=== PATIENT | male | born 1950 | race Caucasian/White ===

== ENCOUNTER 2023-03-14 12:31 | Outpatient (CLI) | payer OTHER, SELFPAY ==
[2023-03-14 19:20] LABS: Basophils Absolute Auto 0.1 K/mm3 (0.0-0.1); Basophils Percent Auto 0.7 % (0.2-1.2); Eosinophils Absolute Auto 0.6 K/mm3 (0-0.3); Eosinophils Percent Auto 5.6 % (0-4.4); Hematocrit 45.7 % (42.0-52.0); Hemoglobin 14.9 g/dL (14.0-18.0); Immature Granulocyte Absolute 0.04 K/mm3 (0.00-0.031); Immature Granulocyte Percent A 0.4 % (0-0.5); Lymphocytes Absolute Auto 2.81 K/mm3 (0.9-3.2); Lymphocytes Percent Auto 26.3 % (18.3-44.2); Mean Corpuscular HGB Conc 32.6 g/dl (32-36); Mean Corpuscular Hemoglobin 30.5 pg (26-34); Mean Corpuscular Volume 93.6 fl (80-100); Mean Platelet Volume 10.2 fl (7.4-10.4); Monocytes Absolute Auto 0.9 K/mm3 (0.1-0.6); Monocytes Percent Auto 8.2 % (2.6-8.5); Neutrophils Absolute Auto 6.3 K/mm3 (1.3-6.7); Neutrophils Percent Auto 58.8 % (45.5-73.1); Platelet Count Result 322 k/mm3 (150-375); Red Blood Count 4.88 M/mm3 (4.6-6.20); Red Cell Distribution Width 12.4 % (11.5-14.5); White Blood Count 10.7 K/mm3 (4.5-10.0)
[2023-03-14 22:10] LABS: Prostate Specific Antigen 2.9 ng/mL (< OR = 4.0)
[2023-03-15 00:24] LABS: Alanine Aminotransferase 19 U/L (6-50); Albumin Level 4.2 g/dL (3.5-5.1); Alkaline Phosphatase 82 U/L (38-126); Anion Gap 9 mmol/L (8-16); Aspartate Amino Transferase 28 U/L (17-59); Bilirubin,Total 0.7 mg/dL (0.2-1.3); Blood Urea Nitrogen 14 mg/dL (9-20); Calcium 9.3 mg/dL (8.4-10.2); Carbon Dioxide 27 mmol/L (22-30); Chloride 104 mmol/L (98-107); Cholesterol 140 mg/dL (0-200); Estimated Glomerular Filt Rate > 60; Glucose 84 mg/dL (65-110); HDL Direct 45 mg/dL; Potassium 4.2 mmol/L (3.4-5.0); Sodium 140 mmol/L (137-145); Triglycerides 95 mg/dL (<150)
[2023-03-15 00:33] LABS: LDL Cholesterol Direct 83 mg/dL
== END 2023-03-14 12:32 | disposition home or self-care (01) ==
LOC: ANHGOSHLAB 12:33
PROVIDERS: PCP Family Medicine; Visit Provider Family Medicine
DX: Z13.228 Encounter for screening for other metabolic disorders (principal); R53.83 Other fatigue; Z13.220 Encounter for screening for lipoid disorders; E78.5 Hyperlipidemia, unspecified; Z12.5 Encounter for screening for malignant neoplasm of prostate
CPT/HCPCS: 36415; 80053; 80061; 84153; 85025; G0103

== ENCOUNTER 2023-06-15 00:31 | Day surgery (SDC) | payer OTHER, SELFPAY ==
[2023-05-30 14:55] VITALS: BMI 20.9
[2023-06-15 07:42] VITALS: BP 133/69; PULSE 58; RESP 20; TEMP 36.1; O2SAT 96; BMI 21.2
[2023-06-15] MEDS: LACTATED RINGERS 1,000 ML 150 ML IV CONT (07:53)
--- NOTE | 2023-06-15 08:46 | PM.HPGS ---
History of Present Illness History of Present Illness Consent: Risks, benefits, and alternatives have been discussed and questions answered. Patient agrees to proceed with procedure. Chief complaint: Epigastric pain Narrative: Saeid Silver is a 72 year old male with gerd, never had egd. Using rolaids as needed Review of Systems Review of Systems: All systems reviewed & are unremarkable except as noted in HPI and below PMFSH Past Medical History Medical History (Updated 06/15/23 @ 08:51 by Jr Montero MD) GERD (gastroesophageal reflux disease) Surgical History Surgical History Hx of cholecystectomy (~2013) Family History Family History Father Malignant neoplasm of prostate Mother Lewy body dementia Sibling Malignant neoplasm of prostate Social History Social History Social History: Caffeine 1 cup of coffee and/or soda a few days a week Smoking packs per day: 1 Smoking cigarettes per day: 20.0 Smoking status: Former smoker Tobacco type: cigarettes Smoking end date: 02/15/08 Alcohol intake: current Drinks per week: 1 Alcohol use details: 2-3 Beer per month Substance use: never Substance use type: marijuana Other substance usage details: gummies Do You Feel Safe in your Home?: Yes Lack of Transportation: No Lack of Food: Never True Current Housing: I Have Housing Concerned About Future Housing: No Difficulty Paying Gas/Electric Bills: No Difficulty Paying for Meds: No Currently Unemployed: No Education: Associate Degree Difficulty w/ Childcare or Family Care: No Living arrangements: alone Occupation/Education: retired Gender identity (if verbalized by the patient): Male Spiritual care concerns: No Agree to blood products: Yes Meds Home Medications and Allergies Home Medications Medication Instructions Recorded Confirmed Type amlodipine 5 mg tablet 5 mg PO DAILY 03/14/23 06/15/23 History simvastatin 10 mg tablet 10 mg PO DAILY 03/14/23 06/15/23 History Allergies Allergy/AdvReac Type Severity Reaction Status Date / Time No Known Allergies Allergy Verified 06/15/23 07:41 Vital Signs Vital Signs - 24 hr 06/15/23 07:42 Temperature 97 F L Pulse Rate 58 L Respiratory Rate 20 Blood Pressure 133/69 Pulse Oximetry 96 Oxygen Delivery Room Air Exam Const: General: comfortable and no acute distress HENMT: Face/Nose/Sinus: Normal nares present Eyes: General: appearance normal, both eyes and all related structures Neck: Neck: no JVD Resp: Auscultation: clear to auscultation bilaterally Cardio: Rate: regular rate Rhythm: regular rhythm GI: Inspection: non-distended GI Palp: Yes Soft to palpation Skin: General skin exam: normal color Neuro: General: gait normal Speech: normal speech Extrem: General: normal to inspection Psych: Mental Status: mental status grossly normal Assessment and Plan Assessment and plan (1) GERD (gastroesophageal reflux disease): Code(s): K21.9 - Gastro-esophageal reflux disease without esophagitis Status: Acute Assessment and Plan: egd with bx
[2023-06-15 09:01] VITALS: BP 104/61; PULSE 61; RESP 19; O2SAT 97
[2023-06-15 09:11] VITALS: BP 107/61; PULSE 62; RESP 26; O2SAT 99
[2023-06-15 09:21] VITALS: BP 112/70; PULSE 60; RESP 20; O2SAT 98
--- NOTE | 2023-06-17 11:31 | WPDANESEPPF ---
Anes - Initial Pre Proc Eval Procedure: Operation Date: 06/15/23 09:00 Proposed Procedures p Esophagogastroduodenoscopy - Jr Montero MD Date/Time: 06/17/23 11:31 Surgeon: Jr Montero MD Pre Op Diagnosis: Epigastric pain Patient Data Age: 72 Gender: M Height: 1.68 m Weight: 59.7 kg Last Vital Signs Temp 97 F L 06/15/23 07:42 Pulse 60 06/15/23 09:21 Resp 20 06/15/23 09:21 BP 112/70 06/15/23 09:21 Pulse Ox 98 06/15/23 09:21 O2 Del Method Room Air 06/15/23 09:21 Allergies Allergy/AdvReac Type Severity Reaction Status Date / Time No Known Allergies Allergy Verified 06/15/23 07:41 Home Medications Medication Instructions Recorded Confirmed Type amlodipine 5 mg tablet 5 mg PO DAILY 03/14/23 06/15/23 History simvastatin 10 mg tablet 10 mg PO DAILY 03/14/23 06/15/23 History Patient hx anesthesia problems: none Family hx anesthesia problems: none Results Review: All pre-operative results and documents have been reviewed as part of the pre-operative evaluation. [facility] Past Medical History Medical History (Updated 06/15/23 @ 08:51 by Jr Montero MD) GERD (gastroesophageal reflux disease) Surgical History Surgical History Hx of cholecystectomy (~2013) Family History Family History Father Malignant neoplasm of prostate Mother Lewy body dementia Sibling Malignant neoplasm of prostate Social History Social History Social History: Caffeine 1 cup of coffee and/or soda a few days a week Smoking packs per day: 1 Smoking cigarettes per day: 20.0 Smoking status: Former smoker Tobacco type: cigarettes Smoking end date: 02/15/08 Alcohol intake: current Drinks per week: 1 Alcohol use details: 2-3 Beer per month Substance use: never Substance use type: marijuana Other substance usage details: gummies Do You Feel Safe in your Home?: Yes Lack of Transportation: No Lack of Food: Never True Current Housing: I Have Housing Concerned About Future Housing: No Difficulty Paying Gas/Electric Bills: No Difficulty Paying for Meds: No Currently Unemployed: No Education: Associate Degree Difficulty w/ Childcare or Family Care: No Living arrangements: alone Occupation/Education: retired Gender identity (if verbalized by the patient): Male Spiritual care concerns: No Agree to blood products: Yes Anes - Eval Final PreProcedure Day of Procedure 06/17/23 11:31 Patient weight: normal Heart: regular rate and rhythm Lungs: clear to auscultation Airway: Mallampati scale class II Neurological: alert and oriented Last oral intake: >/= 8 hours ASA classification: III Emergent: no Anesthetic plan: proceed Anesthesia type and monitoring: general GIVS and standard monitoring Results Review: All pre-operative results and documents have been reviewed as part of the pre-operative evaluation. Informed Consent: The patient's anesthetic plan and its attendant risks and benefits were discussed with the patient/family/POA. Questions were solicited and answers provided to the satisfaction of the patient/family/POA.
== END 2023-06-15 09:25 | disposition home or self-care (01) ==
PROVIDERS: PCP Family Medicine; Visit Provider Internal Medicine Gastroenterology
PROC: 0DJ08ZZ Inspection of Upper Intestinal Tract, Via Natural or Artificial Opening Endoscopic (ICD-10-PCS; CPT 43235; principal; 2023-06-15 09:00)
DX: K21.9 Gastro-esophageal reflux disease without esophagitis (principal); K57.11 Diverticulosis of small intestine without perforation or abscess with bleeding; Z87.891 Personal history of nicotine dependence; F12.90 Cannabis use, unspecified, uncomplicated
CPT/HCPCS: 43239; 88305; J2704; J7120

== ENCOUNTER 2024-02-13 09:29 | Outpatient (CLI) | payer OTHER, SELFPAY ==
[2024-02-13 20:48] LABS: Basophils Absolute Auto 0.1 K/mm3 (0.0-0.1); Basophils Percent Auto 0.6 % (0.2-1.2); Eosinophils Absolute Auto 0.8 K/mm3 (0-0.3); Eosinophils Percent Auto 7.3 % (0-4.4); Hematocrit 48.4 % (42.0-52.0); Hemoglobin 15.8 g/dL (14.0-18.0); Immature Granulocyte Absolute 0.03 K/mm3 (0.00-0.031); Immature Granulocyte Percent A 0.3 % (0-0.5); Lymphocytes Absolute Auto 2.57 K/mm3 (0.9-3.2); Lymphocytes Percent Auto 24.4 % (18.3-44.2); Mean Corpuscular HGB Conc 32.6 g/dl (32-36); Mean Corpuscular Hemoglobin 31.3 pg (26-34); Mean Corpuscular Volume 95.8 fl (80-100); Mean Platelet Volume 10.3 fl (7.4-10.4); Monocytes Percent Auto 9.7 % (2.6-8.5); Neutrophils Absolute Auto 6.1 K/mm3 (1.3-6.7); Neutrophils Percent Auto 57.7 % (45.5-73.1); Platelet Count Result 285 k/mm3 (150-375); Red Blood Count 5.05 M/mm3 (4.6-6.20); Red Cell Distribution Width 12.5 % (11.5-14.5); White Blood Count 10.5 K/mm3 (4.5-10.0)
[2024-02-13 21:49] LABS: Alanine Aminotransferase 18 U/L (6-50); Albumin Level 4.3 g/dL (3.5-5.1); Alkaline Phosphatase 75 U/L (38-126); Anion Gap 4 mmol/L (4-12); Aspartate Amino Transferase 47 U/L (17-59); Bilirubin,Total 1.3 mg/dL (0.2-1.3); Blood Urea Nitrogen 15 mg/dL (9-20); Calcium 9.5 mg/dL (8.4-10.2); Carbon Dioxide 28 mmol/L (22-30); Chloride 107 mmol/L (98-107); Cholesterol 189 mg/dL (0-200); Estimated Glomerular Filt Rate > 60; Glucose 87 mg/dL (65-110); HDL Direct 47 mg/dL; Potassium 4.2 mmol/L (3.4-5.0); Sodium 139 mmol/L (137-145); Triglycerides 111 mg/dL (<150)
[2024-02-13 21:51] LABS: Hemoglobin A1C 5.5 % (<5.7)
[2024-02-13 22:00] LABS: LDL Cholesterol Direct 100 mg/dL
[2024-02-13 22:21] LABS: Prostate Specific Antigen 5.7 ng/mL (< OR = 4.0); Vitamin D 25 Hydroxy 25.7 ng/mL
== END 2024-02-13 09:30 | disposition home or self-care (01) ==
LOC: ANHGOSHLAB 09:30
PROVIDERS: PCP Emergency Medicine; Visit Provider Emergency Medicine
DX: E78.5 Hyperlipidemia, unspecified (principal); I10 Essential (primary) hypertension; E11.9 Type 2 diabetes mellitus without complications; E55.9 Vitamin D deficiency, unspecified; Z12.5 Encounter for screening for malignant neoplasm of prostate
CPT/HCPCS: 36415; 80053; 80061; 82306; 83036; 84153; 85025; G0103

== ENCOUNTER 2024-02-29 12:45 | Outpatient (CLI) | payer OTHER, SELFPAY ==
--- NOTE | 2024-02-29 13:00 | ECHO_ITS ---
Patient Info Name: Saeid Silver Age: 73 years : 1950 Gender: Male Ht: 66 in Wt: 135 lbs BSA: 1.69 m2 HR: 66 bpm BP: 164 / 87 mmHg Heart Rhythm: Sinus Rhythm Technical Quality: Good Exam Date: 02/29/2024 12:53 PM Exam Location: Echo Lab Patient Status: Outpatient Admit Date: 02/29/2024 Staff Ordering Physician: Emir Herrera MD Broaching Machine Set Up Operator: Sanjuana Villarreal RDCS Attending Provider: Emir Herrera MD Referring Physician: Javier SHEIKH; Exam Type: CA echo doppler color flow Study Info Indications R00.2 - Palpitations Complete two-dimensional, color flow and Doppler transthoracic echocardiogram is performed. Summary 1. Complete two-dimensional, color flow and Doppler transthoracic echocardiogram is performed. 2. Left ventricular chamber dimension is normal. 3. Left ventricular systolic function is normal, estimated at 60-65%. 4. The left ventricular diastolic function is normal. 5. E/e' 8 is minimally elevated. 6. Left atrial chamber dimension is mildly enlarged. 7. There is mild mitral valve regurgitation. 8. No pulmonary hypertension, estimated pulmonary arterial systolic pressure is 20 mmHg. Left Ventricle E/e' 8 is minimally elevated. Left ventricular chamber dimension is normal. Left ventricular systolic function is normal, estimated at 60-65%. The left ventricular diastolic function is normal. Right Ventricle Right ventricular chamber dimension is normal. Right ventricular systolic function is normal. Left Atria Left atrial chamber dimension is mildly enlarged. Right Atria Right atrial chamber dimension is normal. Aortic Valve The aortic valve is trileaflet. There is no aortic valve stenosis. There is no aortic valve regurgitation. Pulmonic Valve There is no pulmonic regurgitation. Mitral Valve There is no mitral valve stenosis. There is mild mitral valve regurgitation. Tricuspid Valve There is no tricuspid valve regurgitation. No pulmonary hypertension, estimated pulmonary arterial systolic pressure is 20 mmHg. Pericardium/Pleural There is no pericardial effusion. Inferior Vena Cava Normal inferior vena cava with >50% collapse upon inspiration consistent with normal right atrial pressure, 5 mmHg. Aorta The aortic root size at the sinus of Valsalva is normal. Left Ventricular Outflow Tract Name Value Normal LVOT 2D LVOT Diameter 2.0 cm LVOT Doppler LVOT Peak Gradient 3 mmHg LVOT Mean Gradient 1 mmHg LVOT VTI 16 cm LVOT VTI/AV VTI Ratio 0.8 LVOT Stroke Volume 53 ml LVOT CO 2.9 l/min LVOT CI 1.7 l/min/m2 Pulmonic Valve Name Value Normal RVOT Doppler RVOT Peak Gradient 1 mmHg PV Doppler PV Peak Gradient 4 mmHg Mitral Valve Name Value Normal MV Doppler MV Decel [place] 269 cm/s2 MV PHT 71 ms MV Area (PHT) 3.1 cm2 4.0-5.0 MV Diastolic Function MV E Peak Velocity 66 cm/s MV A Peak Velocity 51 cm/s MV E/A 1.3 MV Decel Time 244 ms MV Annular TDI MV E/e' (Septal) 10.5 <=8.0 MV E/e' (Lateral) 6.5 <=8.0 MV E/e' (Average) 8.5 Tricuspid Valve Name Value Normal TV Regurgitation Doppler TR Peak Velocity 191 cm/s TR Peak Gradient 15 mmHg Estimated PAP/RSVP RA Pressure 5 mmHg <=5 PA Systolic Pressure 20 mmHg <36 RV Systolic Pressure 20 mmHg <36 Aorta Name Value Normal Ascending Aorta Ao Root Diameter (MM) 3.0 cm Ao Root Diam Index (MM) 1.8 cm/m2 Aortic Valve Name Value Normal AV Doppler AV Peak Velocity 104 cm/s AV Peak Gradient 4 mmHg AV Mean Gradient 2 mmHg AV VTI 21 cm AV Area (Cont Eq VTI) 2.5 cm2 >=3.0 AV Area (Cont Eq Christiano) 2.5 cm2 AV Regurgitation 2D LVOT Area 3.2 cm2 Ventricles Name Value Normal LV Dimensions 2D/MM IVS Diastolic Thickness (2D) 0.9 cm 0.6-1.0 LVID Diastole (2D) 4.5 cm 4.2-5.8 LVIW Diastolic Thickness (2D) 0.9 cm 0.6-1.0 LVID Systole (2D) 2.6 cm 2.5-4.0 LVOT Diameter 2.0 cm LV Mass (2D Cubed) 134.62 g 88.00-224.00 LV Mass Index (2D Cubed) 80 g/m2 49-115 Relative Wall Thickness (2D) 0.42 LV Fractional Shortening/Ejection Fraction 2D/MM LV Fractional Shortening (2D) 41 % 25-43 LV EF (2D Teicholz) 72 % 52-72 LV Diastolic Volume (4C MOD) 54 ml LV EF (4C MOD) 61 % LV Diastolic Volume (2C MOD) 60 ml LV EF (2C MOD) 69 % LV Diastolic Volume (BP MOD) 59 ml 62-150 LV Diastolic Volume Index (BP MOD) 35 ml/m2 34-74 LV Systolic Volume (BP MOD) 20 ml 21-61 LV Systolic Volume Index (BP MOD) 12 ml/m2 11-31 LV EF (BP MOD) 66 % 52-72 LV Diastolic Length (4C) 7.0 cm LV Systolic Length (4C) 5.9 cm LV Stroke Volume (4C MOD) 33 ml Atria Name Value Normal LA Dimensions LA Dimension (MM) 4.5 cm 3.0-4.1 LA Volume (4C A-L) 24 ml LA Volume (BP A-L) 30 ml RA Dimensions RA Area (4C) 11.4 cm2 <=18.0 Report Signatures
--- NOTE | 2024-02-29 13:37 | ECG_ITS ---
Test Date: 2024-02-29 13:42:16 Measurements Intervals [place] Rate: 57 P: 12 MA: 198 QRS: -21 QRSD: 102 T: -15 QT: 432 QTc: 423 Interpretive Statements SINUS BRADYCARDIA INFERIOR MYOCARDIAL INFARCTION , OF INDETERMINATE AGE [40+ ms Q WAVE AND/OR ST/T ABNORMALITY IN II/aVF] NONSPECIFIC T WAVE ABNORMALITY No previous ECG available for comparison Electronically Signed On 02-29-2024 14:37:54 [employer] by Mary Villagomez M.D.
== END 2024-02-29 12:46 | disposition home or self-care (01) ==
LOC: ANHCARD 12:47
PROVIDERS: PCP Emergency Medicine; Visit Provider Emergency Medicine
DX: R94.31 Abnormal electrocardiogram [ECG] [EKG] (principal); I34.0 Nonrheumatic mitral (valve) insufficiency; R00.2 Palpitations
CPT/HCPCS: 93005; 93306

== ENCOUNTER 2024-08-24 09:45 | Emergency (ER) | payer OTHER, SELFPAY ==
[2024-08-24 10:21] VITALS: BP 165/81; PULSE 73; RESP 16; TEMP 36.8; O2SAT 96
--- NOTE | 2024-08-24 11:05 | ED_ITS ---
HPI - General Adult General Chief complaint: Allergic Reaction Stated complaint: Rash Time Seen by Provider: 08/24/24 10:51 Source: patient and RN notes reviewed Mode of arrival: ambulatory Limitations: no limitations History of Present Illness HPI narrative: Patient presents today complaining of burning rash to the left face, chin, lips since yesterday that he currently rates 8/10. He has been taking Tylenol and ibuprofen with mild relief. Three days ago he had some prickling pain to the left face and was subsequently seen at another facility, diagnosed with left otitis media and externa and prescribed azithromycin and antibiotic ear drops. He has since started the azithromycin but the pharmacy was out of his ear drops. Denies vision changes. Wears contact in the left eye. Related Data Home Medications ?Medication ?Instructions ?Recorded ?Confirmed ?Last Taken ?Type azithromycin 250 mg tablet mg 08/24/24 Unknown History Allergies Allergy/AdvReac Type Severity Reaction Status Date / Time No Known Allergies Allergy Verified 08/24/24 10:25 [facility] Past Medical History Medical History GERD (gastroesophageal reflux disease) Surgical History Surgical History Hx of cholecystectomy (~2013) Family History Family History Father Malignant neoplasm of prostate Mother Lewy body dementia Sibling Malignant neoplasm of prostate Social History Social History Social History: Caffeine 1 cup of coffee and/or soda a few days a week Smoking packs per day: 1 Smoking cigarettes per day: 20.0 Smoking status: Former smoker Tobacco type: cigarettes Smoking end date: 02/15/08 Alcohol intake: current Drinks per week: 1 Alcohol use details: 2-3 Beer per month Substance use: current Substance use type: marijuana Other substance usage details: gummies Do You Feel Safe in your Home?: Yes Lack of Transportation: No Lack of Food: Never True Current Housing: Decline to Answer Concerned About Future Housing: Decline to Answer Difficulty Paying Gas/Electric Bills: Decline to Answer Difficulty Paying for Meds: Decline to Answer Currently Unemployed: Decline to Answer Education: Decline to Answer Difficulty w/ Childcare or Family Care: Decline to Answer Living arrangements: alone Occupation/Education: retired Gender identity (if verbalized by the patient): Male Spiritual care concerns: No Agree to blood products: Yes Comments At time of signature, I have reviewed and agree with nursing past medical, surgical, social and family history unless otherwise noted. Please see nursing chart for further information. There is no relevant family history pertinent to the presenting complaint Exam Narrative: GENERAL: Well-appearing, well-nourished, and in no acute distress. HEAD: Normocephalic, atraumatic. EYES: EOMI. No redness or drainage. Conjunctivae normal. ENT: Mucous membranes pink and moist. Nares clear. No rhinorrhea. TMs normal bilaterally. Left ear: Severe swelling and moderate erythema of the canal with movement and tragal tenderness. No drainage from the canal. NECK: Normal AROM. CHEST: No respiratory distress. EXTREMITIES: Normal range of motion. No edema. SKIN: Warm, dry. Capillary refill normal. Normal skin turgor. Erythematous fascicular rash starting at the mu-ism extending to the left cheek, chin, nose, and lateral half of the lips. NEURO: No focal deficits. Alert and oriented x3. Gait steady. PSYCH: Normal affect. No signs of depression or anxiety. Course Course Level of Care: Express Care Visit Vital Signs Vital signs: Vital Signs Temperature 98.2 F 08/24/24 10:21 Pulse Rate 73 08/24/24 10:21 Respiratory Rate 16 08/24/24 10:21 Blood Pressure 165/81 H 08/24/24 10:21 Pulse Oximetry 96 08/24/24 10:21 Temperature 98.2 F 08/24/24 10:21 Pulse Rate 73 08/24/24 10:21 Respiratory Rate 16 08/24/24 10:21 Blood Pressure 165/81 H 08/24/24 10:21 Pulse Oximetry 96 08/24/24 10:21 Reviewed Medical Decision Making MDM Narrative Medical decision making narrative: 73-year-old male patient presents with large area of vesicular painful rash to the left face with prodrome. Exam consistent with shingles. Rojo lamp exam of the left cornea showed no fluorescein uptake. Ear wick placed in the left ear, and patient instructed to start antibiotic ear drops when received from pharmacy today. Prescription for valacyclovir sent to pharmacy for shingles. Recommend patient call his eye doctor to schedule a follow-up eye exam early next week. Vital signs stable. Anticipatory guidance given. Differential Diagnosis Differential Diagnosis: Shingles, [id number], contact dermatitis, eczema, viral exanthem Vital Signs Vital Signs: Vital Signs Temperature 98.2 F 08/24/24 10:21 Pulse Rate 73 08/24/24 10:21 Respiratory Rate 16 08/24/24 10:21 Blood Pressure 165/81 H 08/24/24 10:21 Pulse Oximetry 96 08/24/24 10:21 Temperature 98.2 F 08/24/24 10:21 Pulse Rate 73 08/24/24 10:21 Respiratory Rate 16 08/24/24 10:21 Blood Pressure 165/81 H 08/24/24 10:21 Pulse Oximetry 96 08/24/24 10:21 Critical Care Time Critical Care Time Critical Care Time: No Discharge Plan Discharge Clinical Impression: Shingles Qualifiers: Herpes zoster complications: without complications Qualified Code(s): B02.9 - Zoster without complications Patient Disposition: Home Condition: Stable Instructions: Shingles (ED) Additional Instructions: You have been diagnosed with shingles. Please take the valacyclovir as prescribed. Continue Tylenol or ibuprofen for pain if needed. Your eye exam today at the urgent care was normal. Please call your eye doctor today and schedule an eye exam for next week. Please use the prescribed ear drops as directed. The ear wick will fall off on its own once the swelling has improved. Follow-up with your PCP with any additional concerns. Your blood pressure was elevated above 120/80 today at Urgent Care. This puts you above the threshold for follow up. Please schedule a followup visit with your personal physician as soon as possible, for further evaluation and treatment. Even blood pressure exceeding 120/80 may indicate pre-hypertension. Patient Language: R[place] Prescriptions: New valacyclovir 1 gram tablet 1,000 mg PO TID 7 Days Qty: 21 0RF No Action azithromycin 250 mg tablet ciprofloxacin HCl 0.2 % dropperette 5 drp EACH EAR Q12H 7 Days Qty: 14 0RF amlodipine 5 mg tablet 5 mg PO DAILY Qty: 90 2RF Follow-up/Referrals: Emir Herrera MD [Primary Care Provider] - Time of Disposition: 11:17
[2024-08-24] MEDS: FLUORESCEIN SOD 1 MG/STRIP LEFT EYE (11:10)
== END 2024-08-24 11:22 | disposition home or self-care (01) ==
PROVIDERS: Emergency Provider Nurse Practitioner; PCP Emergency Medicine
DX: B02.9 Zoster without complications (principal); Z87.891 Personal history of nicotine dependence
CPT/HCPCS: 99213; G0463

== ENCOUNTER 2024-08-28 17:16 | Emergency (ER) | payer OTHER, SELFPAY ==
--- NOTE | 2024-08-28 17:19 | ED.SKABFB ---
HPI - Skin/Abscess/Foreign Bdy General Chief complaint: Skin/Abscess/Foreign Body Stated complaint: Skin Irritation Time Seen by Provider: 08/28/24 17:40 Source: patient and RN notes reviewed Mode of arrival: ambulatory Limitations: no limitations History of Present Illness HPI narrative: 73-year-old male presents with concern for tear ago and diagnosed with shingles on the face. He also is having ear pain so he was prescribed ear drops for an otitis externa. He presents because his ear is still painful. During that visit he had an ear wick placed due to EAC swelling, he reports he took the ear wick out. He is concerned if he needs the ear wick still are not. He reports he is taking Tylenol for the pain on his face. Reports mucosa is painful so he has had trouble eating. He started eating ice cream because he has lost weight. MD complaint: rash Related Data Home Medications ?Medication ?Instructions ?Recorded ?Confirmed ?Last Taken ?Type azithromycin 250 mg tablet mg 08/24/24 Unknown History Allergies Allergy/AdvReac Type Severity Reaction Status Date / Time No Known Allergies Allergy Verified 08/28/24 17:28 Review of Systems Review of Systems: CONSTITUTIONAL: Denies malaise, chills, sweats, or fever. EYES: Denies redness, or discharge. ENT: Denies rhinorrhea, congestion, swollen lips, swollen tongue CARDIOVASCULAR: Denies chest pain, palpitations, or edema. RESPIRATORY: Denies cough or dyspnea. GASTROINTESTINAL: Denies abdominal pain, nausea, vomiting SKIN: Reports painful rash on the face, oral mucosa, ear MUSCULOSKELETAL: Denies joint pain or myalgia. NEUROLOGIC: Denies headache. All systems reviewed & are unremarkable except as noted in HPI and below PMFSH Past Medical History Medical History GERD (gastroesophageal reflux disease) Surgical History Surgical History Hx of cholecystectomy (~2013) Family History Family History Father Malignant neoplasm of prostate Mother Lewy body dementia Sibling Malignant neoplasm of prostate Social History Social History Social History: Caffeine 1 cup of coffee and/or soda a few days a week Smoking packs per day: 1 Smoking cigarettes per day: 20.0 Smoking status: Former smoker Tobacco type: cigarettes Smoking end date: 02/15/08 Alcohol intake: current Drinks per week: 1 Alcohol use details: 2-3 Beer per month Substance use: current Substance use type: marijuana Other substance usage details: gummies Do You Feel Safe in your Home?: Yes Lack of Transportation: No Lack of Food: Never True Current Housing: Decline to Answer Concerned About Future Housing: Decline to Answer Difficulty Paying Gas/Electric Bills: Decline to Answer Difficulty Paying for Meds: Decline to Answer Currently Unemployed: Decline to Answer Education: Decline to Answer Difficulty w/ Childcare or Family Care: Decline to Answer Living arrangements: alone Occupation/Education: retired Gender identity (if verbalized by the patient): Male Spiritual care concerns: No Agree to blood products: Yes Comments At time of signature, agree with nursing past medical, surgical, social and family history. There is no relevant family history pertinent to the presenting complaint Exam Narrative: GENERAL: Well-appearing, well-nourished, and in no acute distress. HEAD: Normocephalic, atraumatic. EYES: PERRLA, conjunctivae clear, and EOMI. ENT: Mucous membranes moist. Oropharynx without edema, erythema or lesions. Left TM pearly kaba with sharp light reflex NECK: Supple. No lymphadenopathy CHEST: Clear to auscultation. No respiratory distress. HEART: Regular rate and rhythm. SKIN: Warm, dry. Zosteriform rash noted to the left side of the face extending from the chin to the corner of the mouth to the ear, including the EAC and the outer ear. NEURO: Alert and oriented x3. PSYCH: Normal mood and affect Course Course Emergency Course: Patient is aware of diagnosis, understands and agrees to treatment plan. Anticipatory guidance given. Patient agrees to follow-up as directed and is aware of reasons to seek care at the emergency department. Portions of this record may have been created with voice recognition software Level of Care: Express Care Visit Vital Signs Vital signs: Vital Signs Temperature 98.8 F 08/28/24 17:23 Pulse Rate 76 08/28/24 17:23 Respiratory Rate 16 08/28/24 17:23 Blood Pressure 147/80 H 08/28/24 17:23 Pulse Oximetry 96 08/28/24 17:23 Temperature 98.8 F 08/28/24 17:23 Pulse Rate 76 08/28/24 17:23 Respiratory Rate 16 08/28/24 17:23 Blood Pressure 147/80 H 08/28/24 17:23 Pulse Oximetry 96 08/28/24 17:23 Reviewed. MDM - Skin/Abscess/Foreign Bdy MDM Narrative Medical decision making narrative: Does not appear at this time to be erythema multiforme, bullous, SJS, TEN; no evidence at this time to suggest RMSF, endocarditis or Lyme disease; patient looks well, nontoxic and is tolerating oral intake; no neurologic signs or symptoms; no headache, photophobia or neck pain; afebrile; appropriate for initial outpatient treatment; discussed the importance of follow-up, patient agrees; question, viral exanthema, contact dermatitis, allergic dermatitis, eczema, urticaria, shingles, otitis externa, otitis media, periorbital cellulitis, secondary infection. No soft palate or uvula edema, no tongue, lip edema or other mucosal involvement, no respiratory compromise, no stridor, no wheezing, no wheezing, no history of syncope, no hypotension, no nausea, vomiting, or diarrhea. Instructed patient to go to nearest ER immediately for any worsening symptoms including but not limited to: fever, spreading rash, pain, sore throat, headache, dizziness, chest pain, trouble breathing, or any symptoms concerning to the patient. Critical Care Time Critical Care Time Critical Care Time: No Discharge Plan Discharge Clinical Impression: Shingles Patient Disposition: Home Condition: Stable Instructions: Shingles (ED) Additional Instructions: Alternate Tylenol and Motrin for pain, body aches, fever. You may take 2 regular strength Tylenol every 4 hours, alternate with 3 regular strength Motrin every 6 hours so you are taking something every 2-3 hours. Take the prescribed pain medicine for pain that might Tylenol and ibuprofen does not treat Continue your drops for 1 week Shingles pain can last weeks, sometimes months. If your pain persists after antiviral medication is complete please follow-up with your primary care provider for a long-term pain control plan. Follow-up with your doctor in the next 2 to 3 days. Go to the emergency room if you have any urgent concerns. Patient Language: Hungarian Prescriptions: New tramadol 50 mg tablet 50 mg PO Q6H PRN (Reason: pain) Qty: 20 0RF No Action azithromycin 250 mg tablet valacyclovir 1 gram tablet 1,000 mg PO TID 7 Days Qty: 21 0RF ciprofloxacin HCl 0.2 % dropperette 5 drp EACH EAR Q12H 7 Days Qty: 14 0RF amlodipine 5 mg tablet 5 mg PO DAILY Qty: 90 2RF Follow-up/Referrals: PHYSICIAN,[employer] SUPERVISOR [Primary Care Provider] - Time of Disposition: 17:54
[2024-08-28 17:23] VITALS: BP 147/80; PULSE 76; RESP 16; TEMP 37.1; O2SAT 96
== END 2024-08-28 18:00 | disposition home or self-care (01) ==
PROVIDERS: Emergency Provider Nurse Practitioner
DX: B02.9 Zoster without complications (principal); K21.9 Gastro-esophageal reflux disease without esophagitis; Z87.891 Personal history of nicotine dependence; F12.90 Cannabis use, unspecified, uncomplicated
CPT/HCPCS: 99213; G0463

== ENCOUNTER 2024-09-12 11:13 | Emergency (ER) | payer OTHER, SELFPAY ==
[2024-09-12 11:21] VITALS: BP 135/88; PULSE 73; RESP 16; TEMP 36.9; O2SAT 97
--- NOTE | 2024-09-12 11:49 | ED_ITS ---
HPI - Skin/Abscess/Foreign Bdy General Chief complaint: Skin/Abscess/Foreign Body Stated complaint: SHINGLES Time Seen by Provider: 09/12/24 11:25 Source: patient and RN notes reviewed Mode of arrival: ambulatory Limitations: no limitations History of Present Illness HPI narrative: 74-year-old male presents Express Care complaining left-sided facial pain and left-sided tongue numbness. Patient says the left-sided face pain has occurred over the last few weeks stating he recently was diagnosed with shingles in the rash has resolved on the left side of his face. Patient's our last few days he is now notice numbness to the left side of his tongue. Patient recently saw ENT for left ear pain related to shingles and was given antibiotic powder with steroids placed in his ear. Patient denies any focal weakness, slurred speech, facial drooping, vision changes, headaches, problems ambulating, breathing problems, chest pains, or any other symptoms. Related Data Home Medications ?Medication ?Instructions ?Recorded ?Confirmed ?Last Taken ?Type lidocaine HCl 4 % topical cream 1 applic topical QID PRN 09/06/24 09/06/24 Unknown History (Aspercreme (lidocaine HCl)) ciprofloxacin HCl 0.2 % ear drops 09/12/24 Unknown History in a dropperette Allergies Allergy/AdvReac Type Severity Reaction Status Date / Time No Known Allergies Allergy Verified 09/12/24 11:16 Review of Systems Review of Systems: CONSTITUTIONAL: Denies fever, chills, or sweats. EYES: Denies visual changes, redness, or discharge. ENT: Denies rhinorrhea, congestion, sore throat, or otalgia. CARDIOVASCULAR: Denies chest pain, palpitations, or edema. RESPIRATORY: Denies cough or dyspnea. GASTROINTESTINAL: Denies abdominal pain, nausea, vomiting, or diarrhea. GENITOURINARY: Denies dysuria or hematuria. SKIN: Denies rash or itching. MUSCULOSKELETAL: Denies back pain, joint pain, or myalgia. NEUROLOGIC: Denies headache, focal weakness, slurred speech, facial droop, or weakness. Left-sided facial pain, tongue numbness PSYCHIATRIC: Denies anxiety or depression. All other systems reviewed are negative, except as documented in HPI. [facility] Past Medical History Medical History GERD (gastroesophageal reflux disease) Surgical History Surgical History Hx of cholecystectomy (~2013) Family History Family History Father Malignant neoplasm of prostate Mother Lewy body dementia Sibling Malignant neoplasm of prostate Social History Social History Social History: Caffeine 1 cup of coffee and/or soda a few days a week Smoking packs per day: 1 Smoking cigarettes per day: 20.0 Smoking status: Former smoker Tobacco type: cigarettes Smoking end date: 02/15/08 Alcohol intake: current Drinks per week: 1 Alcohol use details: 2-3 Beer per month Substance use: current Substance use type: marijuana Other substance usage details: gummies Do You Feel Safe in your Home?: Yes Lack of Transportation: No Lack of Food: Never True Current Housing: Decline to Answer Concerned About Future Housing: Decline to Answer Difficulty Paying Gas/Electric Bills: Decline to Answer Difficulty Paying for Meds: Decline to Answer Currently Unemployed: Decline to Answer Education: Decline to Answer Difficulty w/ Childcare or Family Care: Decline to Answer Living arrangements: alone Occupation/Education: retired Gender identity (if verbalized by the patient): Male Spiritual care concerns: No Agree to blood products: Yes Comments At the time of my signature, I reviewed and agree with the nursing past medical, surgical, social, and family history. There is no relevant family history pertinent to the patient complaint. Exam Narrative: GENERAL: This is a well-nourished, well-developed adult, in no apparent distress. They are non ill-appearing, nontoxic appearing. HEAD: normocephalic, atraumatic. EYES: Sclera clear/white. Conjunctiva normal. Vision is grossly intact. Extraocular movements intact EARS: External ears normal, auditory canals clear and without drainage, TMs normal without perforation. Hearing grossly intact. NOSE: External nose normal with no obvious nasal discharge, nasal turbinates without redness, no rhinorrhea. THROAT: Mucous membranes moist, posterior pharynx clear, without erythema or swelling. Uvula midline. OROPHARYNX: Tongue is normal. Patient able to move tongue side to side. Normal tongue movement. No Suspicious lesions or rashes. No gross tooth decay. NECK: Neck supple, non-tender without lymphadenopathy, masses or thyromegaly. CARDIOVASCULAR: Regular rate and rhythm RESPIRATORY: Respiratory rate normal, respiratory effort nonlabored, no respiratory distress SKIN: warm, Dry, intact with no suspicious lesions or rash, good texture and turgor. NEURO: awake, alert, and oriented to person, place and time. There were no obvious focal neurologic abnormalities. No facial droop, no slurred speech, speech is clear, no pronator drift, customer solutions teammate strength 5/5 equal bilaterally. Leg strength equal 5/5 bilaterally. No limb ataxia. EXTREMITIES: No joint tenderness, effusion, or edema noted. BACK: Nontender without deformity. Course Course Emergency Course: Portions of this record may have been created with voice recognition software Level of Care: Express Care Visit Vital Signs Vital signs: Vital Signs Temperature 98.4 F 09/12/24 11:21 Pulse Rate 73 09/12/24 11:21 Respiratory Rate 16 09/12/24 11:21 Blood Pressure 135/88 09/12/24 11:21 Pulse Oximetry 97 09/12/24 11:21 Temperature 98.4 F 09/12/24 11:21 Pulse Rate 73 09/12/24 11:21 Respiratory Rate 16 09/12/24 11:21 Blood Pressure 135/88 09/12/24 11:21 Pulse Oximetry 97 09/12/24 11:21 Reviewed MDM - Skin/Abscess/Foreign Bdy MDM Narrative Medical decision making narrative: Patient reports left-sided paresthesia tongue. NIH score of 0, likely related to recent shingles infection. Patient's persistent pain to the left side of his face along with paresthesias of the left side of his tongue will go ahead and prescribe a prednisone taper. Strict ER precautions discussed with patient specially develops facial drooping, slurred speech, one-sided weakness, headaches, vision changes, dizziness, or any serious concerns. Discussed physical exam findings. Advised supportive measures and signs/symptoms to go to the ER. Pt is appropriate for outpt treatment and f/u. Differential Diagnosis Differential diagnosis: Likely other (Paresthesia, acute neuritis, shingles,) Critical Care Time Critical Care Time Critical Care Time: No Discharge Plan Discharge Clinical Impression: Acute pain associated with herpes zoster, Paresthesia of tongue Patient Disposition: Home Condition: Stable Instructions: Shingles (ED) Additional Instructions: Take the prednisone as directed. Take in the morning take with food. Continue with Tylenol or ibuprofen as needed for pain, follow the instructions on the bottle. Please follow-up with your PCP in 3-5 days. If you develop facial drooping, slurred speech, one-sided weakness, vision changes, severe headaches, worsening numbness or tingling, or any concerns please go to the ER immediately. Patient Language: Togolese Prescriptions: New prednisone 10 mg tablet See Taper PO DIRECTED Qty: 23 0RF Taper: Prednisone Taper from 60 mg;12 days 40 mg DAILY for 2 Days and 0 Hour 30 mg DAILY for 2 Days and 0 Hour 20 mg DAILY for 3 Days and 0 Hour 10 mg DAILY for 3 Days and 0 Hour No Action ciprofloxacin HCl 0.2 % dropperette lidocaine HCl [Aspercreme (lidocaine HCl)] 4 % cream 1 applic topical QID PRN amlodipine 5 mg tablet 5 mg PO DAILY Qty: 90 2RF Follow-up/Referrals: Emir Herrera MD [Primary Care Provider] - Time of Disposition: 11:44
== END 2024-09-12 11:52 | disposition home or self-care (01) ==
PROVIDERS: PCP Emergency Medicine
DX: B02.9 Zoster without complications (principal); K14.8 Other diseases of tongue; Z87.891 Personal history of nicotine dependence; F12.90 Cannabis use, unspecified, uncomplicated; K21.9 Gastro-esophageal reflux disease without esophagitis
CPT/HCPCS: 99213; G0463

== ENCOUNTER 2024-09-12 19:26 | Emergency (ER) | payer OTHER, SELFPAY ==
--- NOTE | ~2024-09-12 | CT_ITS ---
EXAMINATION: CT brain wo con DATE: 09/12/2024 20:08 INDICATION: Tongue numbness . TECHNIQUE: Computed tomography (CT) of the head was performed without intravenous contrast. The mA wa s adjusted according to patient size. Iterative reconstruction technique was employed. The dose-lengt h product was 681.00 mGy-cm. COMPARISON: None. FINDINGS: No acute intracranial hemorrhage or extra-axial fluid collection. No hydrocephalus, mass, or herniation. No acute ischemic infarct. Unremarkable dural venous sinus attenuation. No acute osseous abnormality. The aerated spaces are clear. Mild atrophy and chronic white matter change. Atherosclerotic intracranial calcification. Right lens replacement. IMPRESSION: No acute intracranial process. Reviewed, dictated and finalized at location K.
--- OUTSIDE RECORDS SUMMARY | 2024-09-12 19:28 | XMS_ITS | Continuity of Care Document ---
Author Organization [facility] Address [address] [place] [address] Phone Care Team Providers Care Harness Brusher Name Role Phone Kobe Saleh Unavailable Unavailable Procedures Procedure Date Doc neg elder mal no plan PT Re-evaluation Therapeutic Activities Neuromuscular Re-Ed Therapeutic Exercise Therapeutic Activities Neuromuscular Re-Ed Therapeutic Exercise Therapeutic Activities Neuromuscular Re-Ed Therapeutic Exercise Therapeutic Activities Neuromuscular Re-Ed Therapeutic Exercise Therapeutic Activities Neuromuscular Re-Ed Therapeutic Exercise Therapeutic Activities Neuromuscular Re-Ed Manual Therapy Therapeutic Exercise Therapeutic Activities Neuromuscular Re-Ed Therapeutic Exercise Manual Therapy Therapeutic Activities Neuromuscular Re-Ed Therapeutic Exercise Therapeutic Activities Neuromuscular Re-Ed Therapeutic Exercise Manual Therapy Therapeutic Activities Neuromuscular Re-Ed Therapeutic Exercise Hot or Cold Pack Therapeutic Activities Neuromuscular Re-Ed Therapeutic Exercise Hot or Cold Pack Doc neg elder mal no plan PT Evaluation Moderate Complexity Therapeutic Activities Neuromuscular Re-Ed Therapeutic Exercise Advance Directives Directive Yes / No Effective Date File Name No Information Encounters Encounter Description Practice Location Reason(s) For Visit Diagnoses Date Provider Providers Copied on Encounter [facility] [address] [place] [address], [id number], tel:[phone] [place] No Information Nov-0 6-202 4 Muehl Kobe. [address] [place] [address], [facility] [place] [address], [place], [facility], . tel:[phone], [id number], tel:[phone] [place] No Information 5-202 4 Muehl Kobe. [address] [place] [address], [facility] [place] [address], [place], [facility], . tel:[phone] Referring Provider: Jayleen Payton [place], [place], [facility]. tel:[phone], [id number], tel:[phone] [place] No Information 0-202 4 Muehl Kobe. [address] [place] [address], [facility] [place] [address], [place], [facility], . tel:[phone] Referring Provider: [place], [address]. tel:[phone], [id number], tel:[phone] [place] No Information Nov-0 8-202 4 Muehl Kobe. [address] [place] [address], [facility] [place] [address], [place], [facility], [place]. tel:[phone] Referring Provider: Basia Torres, [address], [place], [address]. tel:[phone] [address], [place], [place], [id number], tel:[phone] [place] No Information Oct-0 4-202 4 Muehl Kobe. [address] [place] [address], [address], [place], [place], [facility], . tel: [phone] Referring Provider: Basia Torres, [address], [place], [address]. tel:[phone] [address] [place] [address], [id number], tel:[phone] [place] No Information Oct-0 1- 4 Muehl Kobe. [address] [place] [address], [address], [place], [facility], . tel: [phone] Referring Provider: Basia Torres, [address] [facility], [place], [address]. tel:[phone] [address] [place] [address], [id number], tel:[phone] [place] No Information Sep-2 7- 4 Muehl Kobe. [address] [place] [address], [address], [place], [facility], . tel: [phone] Referring Provider: [place], [address]. tel:[phone] [address], [place], [id number], tel:[phone] [place] No Information Sep-2 5- 4 Muehl Kobe. [address] [place] [address], [address], [place], [place], [facility], . tel: [phone] Referring Provider: Jayleen [address], [place], [address]. tel:[phone] [address], [place], [place], [id number], tel:[phone] [place] No Information Sep-1 4 Dagoberto Jamin. . Referring Provider: Jayleen Payton [facility], [place], [address]. tel:[phone] [place] [address] [place] [address], [place], [place], [id number], tel:[phone] [place] No Information Sep-1 7- 4 Muehl Kobe. [address] [place] [address], [address], [place], [place], [facility], . tel: [phone] Referring Provider: Jayleen Payton [facility], [place], [address]. tel:[phone] [place] [address] [place] [address], [place], [place], [id number], tel:[phone] [place] No Information Sep-1 2- 4 Muehl Kobe. [address] [place] [address], [address], [place], [facility], . tel: [phone] Referring Provider: Jayleen Payton, [place], [address]. tel:[phone] [place] [address] [place] [address], [place], [place], [id number], tel:[phone] [place] No Information Sep-1 0-202 4 Muehl Kobe. [address] [place] [address], [address], [place], [place], [facility], . tel: [phone] Referring Provider: Jayleen Payton [facility], [place], [address]. tel:[phone] [facility] [address] [place] [address], [place], [place], [id number], tel:[phone] [place] No Information Sep-0 5-202 4 Muehl Kobe. [address] [place] [address], [address], [place], [place], [facility], . tel: [phone] Referring Provider: Basia Brian, [address] [place], [address]. tel:[phone] Family History Family Member Type Diagnosis Age At Onset No Information Payers Payer name Insurance type Covered libertarian ID Authoriza lyudmilajorge(s) Lien-LOP LI 00 Social History Type Description Quantity Date Captured Comments Sex Male Smoking Status No Information Chief Complaint And Reason For Visit No Information Reason For Referral Reason For Referral No Information History Of Present Illness Encounter Date Complaint History Of Prese nt Illness No Information Functional Status Date Functional Assessmen t No Information Instructions Date Instruction Additional Infor mation No Information Assessments Type Assessment Date No Information Patient Care Teams Name Effective Dates (start - stop) Status Members No Information
--- OUTSIDE RECORDS SUMMARY | 2024-09-12 19:28 | XMS_ITS | Clinical Summary ---
Author Organization [facility] Address [address] [place] [address] Care Team Providers Care Painter Aircraft Name Role Phone Unavailable Primary Care Provider Unavailabl e Allergies No known active allergies Medications benzonatate (TESSALON) 200 mg capsule Take 1 Capsule (200 mg) by mouth 3 times daily as needed for Cough. 30 Capsule 05/08/2018 Active Active Problems No known active problems Social History Tobacco Use Types Packs/Day Years Used Date Smoking Tobacco: Never Assessed Sex and Gender Information Value Date Recorded Sex Assigned at Not on file Legal Sex Male 10:23 AM CDT Gender Identity Not on file Sexual Orientation Not on file Last Filed Vital Signs Vital Sign Reading Time Taken Comments Blood Pressure 137/82 05/08/2018 10:40 AM CDT Pulse 78 05/08/2018 10:40 AM CDT Temperature 36.6 C (97.8 F) 05/08/2018 10:40 AM CDT Respiratory Rate 16 05/08/2018 10:40 AM CDT Oxygen Saturation 97% 05/08/2018 10:40 AM CDT Inhaled Oxygen Concentration - - Weight 68 kg (150 lb) 05/08/2018 10:40 AM CDT Height 167.6 cm (5' 6) 05/08/2018 10:40 AM CDT Body Mass Index 24.21 05/08/2018 10:40 AM CDT Plan of Treatment Health Maintenance Due Date Last Done Comments DTAP/TDAP/TD VACCINES (1 - Tdap) 09/01/1970 COLORECTAL SCREENING 09/01/1996 Colorectal Cancer Screening 09/01/1996 FIT-DNA Q 3 years 09/01/1996 FIT/FOBT Q 1 year 09/01/1996 Flex Sig/CT Colonography Q 5 years 09/01/1996 PNEUMOCOCCAL VACCINE 50+ YEARS (1 of 1 - PCV) 09/02/19 02 ZOSTER VACCINE (1 of 2) 09/01/2001 INFLUENZA VACCINE (#1) 2024 RSV VACCINE (60+ or ) (1 - 1-dose 75+ series) 09/01/2026 Insurance MEDICARE [employer] GOLD PLUS [facility]
--- OUTSIDE RECORDS SUMMARY | 2024-09-12 19:28 | XMS_ITS | Patient Health Record ---
Author Organization [facility] Address [address] [place] [address] Care Team Providers Care Barkeeper Name Role Phone Olvin Hutton MD Primary Care Provider Unavailab Ajay Hayden Unavailable [phone] Reason For Referral No Information Medications Medication SIG (Take, Route, Frequency, Duration) Notes Start Date End Date Status Clenpiq 10-3.5-12 MG-GM -GM/175ML ml Orally Twice a day for 1 day 06/25/2022 Active Problems Problem Type SNOMED Code ICD Code Onset Dates Problem Status W/U Status Risk Notes Problem [id number] Diverticulosis o f large intestine without perforation or abscess without bleeding (K57.30) Active confirmed Plan Of Treatment No Information Insurance Providers Payer Name Payer Address Payer Phone Subscriber Number Group Number Insured Name Patient Relationship to Insured Coverage Start Date Coverage End Date [employer] Medicare Hmo [address] [address] [place] [address] [id number] Saeid Silver Self - patient is the insured
[2024-09-12 19:33] VITALS: BP 183/93; PULSE 100; RESP 18; TEMP 36.8; O2SAT 96
--- OUTSIDE RECORDS SUMMARY | 2024-09-12 19:44 | XMS_ITS | Continuity of Care Document ---
Author Organization [facility] Address [address] [place] [address] Phone Care Team Providers Care Mixer Wet Pour Name Role Phone Kobe Saleh Unavailable Unavailable Procedures Procedure Date Doc neg elder mal no plan PT Re-evaluation Therapeutic Activities Neuromuscular Re-Ed Therapeutic Exercise Therapeutic Activities Neuromuscular Re-Ed Therapeutic Exercise Therapeutic Activities Neuromuscular Re-Ed Therapeutic Exercise Therapeutic Activities Therapeutic Exercise Neuromuscular Re-Ed Therapeutic Activities Neuromuscular Re-Ed Therapeutic Exercise Therapeutic [...] Diagnoses Date Provider Providers Copied on Encounter [facility] [address] [place] [address], [id number], tel:[phone] [place] No Information Nov-0 6-202 4 Muehl Kobe. [address] [place] [address], [facility] [address], [place], [facility], . tel:[phone], [id number], tel:[phone] [place] No Information 5-202 4 Muehl Kobe. [address] [place] [address], [facility] [address], [place], [facility], . tel:[phone] Referring Provider: Jayleen Payton [place], [place], [facility]. tel:[phone], [id number], tel:[phone] [place] No Information 0-202 4 Muehl Kobe. [address] [place] [address], [facility] [address], [place], [facility], . tel:[phone] Referring Provider: [place], [address]. tel:[phone], [id number], tel:[phone] [place] No Information Nov-0 8-202 4 Muehl Kobe. [address] [place] [address], [facility] [address], [place], [facility], [place]. tel:[phone] Referring Provider: Basia Torres, [address], [place], [address]. tel:[phone] [address], [place], [place], [id number], tel:[phone] [place] No Information Oct-0 4-202 4 Muehl Kobe. [address] [place] [address], [address], [place], [facility], . tel: [phone] Referring Provider: Basia Torres, [address], [place], [address]. tel:[phone] [address] [place] [address], [id number], tel:[phone] [place] No Information Oct-0 1- 4 Muehl Kobe. [address] [place] [address], [address], [place], [facility], . tel: [phone] Referring Provider: Basia Torres, Jayleen [address] [facility], [place], [address]. tel:[phone] [address] [place] [address], [id number], tel:[phone] [place] No Information Sep-2 7- 4 Muehl Kobe. [address] [place] [address], [address], [place], [facility], . tel: [phone] Referring Provider: Jay[place], [address]. tel:[phone] [address], [id number], tel:[phone] [place] No Information Sep-2 5- 4 Muehl Kobe. [address] [place] [address], [address], [place], [facility], . tel: [phone] Referring Provider: Jayleen Payton [address], [place], [address]. tel:[phone] [address], [place], [place], [id number], tel:[phone] [place] No Information Sep-1 4 Dagoberto Jamin. . Referring Provider: Jayleen Payton [facility], [place], [address]. tel:[phone] [place] [address] [place] [address], [place], [id number], tel:[phone] [place] No Information Sep-1 7- 4 Muehl Kobe. [address] [place] [address], [address], [place], [facility], . tel: [phone] Referring Provider: Jayleen Payton [facility], [place], [address]. tel:[phone] [place] [address] [place] [address], [place], [id number], tel:[phone] [place] No Information Sep-1 2- 4 Muehl Kobe. [address] [place] [address], [address], [facility], . tel: [phone] Referring Provider: Jayleen Payton, [place], [address]. tel:[phone] [place] [address] [place] [address], [place], [id number], tel:[phone] [place] No Information Sep-1 0-202 4 Muehl Kobe. [address] [place] [address], [address], [place], [facility], . tel: [phone] Referring Provider: Jayleen Payton [facility], [place], [address]. tel:[phone] [facility] [address] [place] [address], [place], [id number], tel:[phone] [place] No Information Sep-0 5-202 4 Muehl Kobe. [address] [place] [address], [address], [place], [facility], . tel: [phone] Referring Provider: Basia Brian, [address] [place], [address]. tel:[phone] Family History Family Member Type Diagnosis Age [...]
--- NOTE | 2024-09-12 19:46 | ED.GENADULT ---
HPI - General Adult General Chief complaint: Ear Stated complaint: numbness to tongue Time Seen by Provider: 09/12/24 19:31 History of Present Illness HPI narrative: This 74-year-old male with a recent history of Leandro Humphrey syndrome. He has been ongoing symptoms for last 3 weeks and has been treated by her local ENT doctor Ben Krause. 1 week ago he developed numbness on the left side of his tongue. He has no other neurologic deficits. He has been treated with a course of anti viral. He was care today was started prednisone which she has taken 1 dose. He does not have any double vision dysarthria dysphagia or weakness to any extremity. He is concerned he is having a stroke. Related Data Home Medications ?Medication ?Instructions ?Recorded ?Confirmed ?Last Taken ?Type lidocaine HCl 4 % topical cream 1 applic topical QID PRN 09/06/24 09/06/24 Unknown History (Aspercreme (lidocaine HCl)) ciprofloxacin HCl 0.2 % ear drops 09/12/24 Unknown History in a dropperette Allergies Allergy/AdvReac Type Severity Reaction Status Date / Time No Known Allergies Allergy Verified 09/12/24 19:38 [facility] Past Medical History Medical History GERD (gastroesophageal reflux disease) Surgical History Surgical History Hx of cholecystectomy (~2013) Family History Family History Father Malignant neoplasm of prostate Mother Lewy body dementia Sibling Malignant neoplasm of prostate Social History Social History Social History: Caffeine 1 cup of coffee and/or soda a few days a week Smoking packs per day: 1 Smoking cigarettes per day: 20.0 Smoking status: Former smoker Tobacco type: cigarettes Smoking end date: 02/15/08 Alcohol intake: current Drinks per week: 1 Alcohol use details: 2-3 Beer per month Substance use: current Substance use type: marijuana Other substance usage details: gummies Do You Feel Safe in your Home?: Yes Lack of Transportation: No Lack of Food: Never True Current Housing: Decline to Answer Concerned About Future Housing: Decline to Answer Difficulty Paying Gas/Electric Bills: Decline to Answer Difficulty Paying for Meds: Decline to Answer Currently Unemployed: Decline to Answer Education: Decline to Answer Difficulty w/ Childcare or Family Care: Decline to Answer Living arrangements: alone Occupation/Education: retired Gender identity (if verbalized by the patient): Male Spiritual care concerns: No Agree to blood products: Yes Exam Narrative: APPEARANCE: No apparent distress. Head: atraumatic. Right TM normal. Left TM shows scabbing, no vesicular lesion on the tongue EYES: EOMI, NOSE: Atraumatic NECK: Trachea midline RESPIRATORY: No increased rate of breathing CARDIOVASCULAR: RRR, ABDOMINAL: Non-distended MUSCULOSKELETAl: No obvious deformities NEURO: Alert. Cranial nerves 2-12 grossly intact. No tongue deviation or uvular deviation. Sensation light touch, motor function cerebellar function intact for 4 extremities. Gait exam was normal. SKIN:: Warm, dry. Normal color PSYCHIATRIC: Normal affect NIH Stroke Scale/Score (NIHSS) from [email or web address] on 09/12/2024 All calculations should be rechecked by clinician prior to use RESULT SUMMARY: 0 points NIH Stroke Scale INPUTS: 1A: Level of consciousness ?> 0 = Alert; keenly responsive 1B: Ask month and age ?> 0 = Both questions right 1C: 'Blink eyes' & 'squeeze hands' ?> 0 = Performs both tasks 2: Horizontal extraocular movements ?> 0 = Normal 3: Visual woodward ?> 0 = No visual loss 4: Facial palsy ?> 0 = Normal symmetry 5A: Left arm motor drift ?> 0 = No drift for 10 seconds 5B: Right arm motor drift ?> 0 = No drift for 10 seconds 6A: Left leg motor drift ?> 0 = No drift for 5 seconds 6B: Right leg motor drift ?> 0 = No drift for 5 seconds 7: Limb Ataxia ?> 0 = No ataxia 8: Sensation ?> 0 = Normal; no sensory loss 9: Language/aphasia ?> 0 = Normal; no aphasia 10: Dysarthria ?> 0 = Normal 11: Extinction/inattention ?> 0 = No abnormality Course Vital Signs Vital signs: Vital Signs Temperature 98.2 F 09/12/24 19:33 Pulse Rate 100 09/12/24 19:33 Respiratory Rate 18 09/12/24 19:33 Blood Pressure 183/93 H 09/12/24 19:33 Pulse Oximetry 96 09/12/24 19:33 Oxygen Delivery Room Air 09/12/24 19:33 Temperature 98.2 F 09/12/24 19:33 Pulse Rate 100 09/12/24 19:33 Respiratory Rate 18 09/12/24 19:33 Blood Pressure 183/93 H 09/12/24 19:33 Pulse Oximetry 96 09/12/24 19:33 Oxygen Delivery Room Air 09/12/24 19:33 Medical Decision Making MDM Narrative Medical decision making narrative: -Course: 74-year-old male who is being treated for Leandro Humphrey syndrome presenting for 1 week of left tongue numbness. This is due to involvement of the facial nerve with his varicella virus. 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 CT brain did not show any bleed. His NIH is 0. His neurologic exam is normal. If this was a stroke he is far outside any sort of treatment window and can get further workup on an outpatient basis. He will be referred to neurology. Patient discharged with return precautions. -DDX includes but is not limited to: Leandro Humphrey syndrome, CVA/TIA Vital Signs Vital Signs: Vital Signs Temperature 98.2 F 09/12/24 19:33 Pulse Rate 100 09/12/24 19:33 Respiratory Rate 18 09/12/24 19:33 Blood Pressure 183/93 H 09/12/24 19:33 Pulse Oximetry 96 09/12/24 19:33 Oxygen Delivery Room Air 09/12/24 19:33 Temperature 98.2 F 09/12/24 19:33 Pulse Rate 100 09/12/24 19:33 Respiratory Rate 18 09/12/24 19:33 Blood Pressure 183/93 H 09/12/24 19:33 Pulse Oximetry 96 09/12/24 19:33 Oxygen Delivery Room Air 09/12/24 19:33 Discharge Plan Discharge Clinical Impression: Varicella complication Patient Disposition: Home Condition: Stable Instructions: Antibiotic Form, Shingles (ED) Additional Instructions: He was seen in the emergency department for tongue numbness. This is likely a complication from your VZV. Please continue taking steroids and any retrovirals. Please follow-up with the neurologist listed below for further management if you develop slurred speech, difficulty swallowing, or weakness in extremity, please return to the ED re-evaluation. Patient Language: Nepali Prescriptions: No Action ciprofloxacin HCl 0.2 % dropperette prednisone 10 mg tablet See Taper PO DIRECTED Qty: 23 0RF Taper: Prednisone Taper from 60 mg;12 days 40 mg DAILY for 2 Days and 0 Hour 30 mg DAILY for 2 Days and 0 Hour 20 mg DAILY for 3 Days and 0 Hour 10 mg DAILY for 3 Days and 0 Hour lidocaine HCl [Aspercreme (lidocaine HCl)] 4 % cream 1 applic topical QID PRN amlodipine 5 mg tablet 5 mg PO DAILY Qty: 90 2RF Follow-up/Referrals: Emir Herrera MD [Primary Care Provider] - Anitha Rojas MD [Physician] - 1 Week (Tongue numbness, VZV)
[2024-09-12 19:56] VITALS: O2SAT 94
[2024-09-12 20:09] VITALS: BP 126/79; PULSE 88; RESP 14; O2SAT 96
== END 2024-09-12 20:49 | disposition home or self-care (01) ==
PROVIDERS: Emergency Provider Emergency Medicine; PCP Emergency Medicine
DX: B01.89 Other varicella complications (principal); B02.21 Postherpetic geniculate ganglionitis; K21.9 Gastro-esophageal reflux disease without esophagitis; Z87.891 Personal history of nicotine dependence; Z90.49 Acquired absence of other specified parts of digestive tract
CPT/HCPCS: 70450; 99284

== ENCOUNTER 2024-09-16 15:39 | Emergency (ER) | payer OTHER, SELFPAY ==
--- NOTE | ~2024-09-16 | XR_ITS ---
EXAMINATION: XR chest 2V Exam Date/Time: 09/16/2024 17:06 CDT HISTORY: chest wall pain/lump x 1 month, BB on lump in lat Comparison: None. RESULT: Lines, tubes, and devices: Cholecystectomy clips. Lungs and pleura: Peripheral reticular opacities. Patchy groundglass opacities in the right upper an d right lower lobes. Cardiomediastinal silhouette: Stable. Other: No acute osseous or upper abdominal finding. IMPRESSION: Patchy groundglass opacities in the right lung, may represent asymmetric edema or infection. Likely u nderlying chronic interstitial changes Reviewed, dictated and finalized at location K. IMPRESSION: Patchy groundglass opacities in the right lung, may represent asymmetric edema or infection. Likely underlying chronic interstitial changes
[2024-09-16 15:42] VITALS: BP 141/88; PULSE 85; RESP 18; TEMP 36.4; O2SAT 96
--- OUTSIDE RECORDS SUMMARY | 2024-09-16 15:42 | XMS_ITS | Patient Health Record ---
Author Organization [facility] Address [address] [place] [address] Care Team Providers Care Asw Specialist Name Role Phone Olvin Hutton MD Primary Care Provider Unavailab Ajay Hayden Unavailable [phone] Reason For Referral No Information Medications Medication SIG (Take, Route, Frequency, Duration) Notes Start Date End Date Status Clenpiq 10-3.5-12 MG-GM -GM/175ML ml Orally Twice a day for 1 day 06/25/2022 Active Problems Problem Type SNOMED Code ICD Code Onset Dates Problem Status W/U Status Risk Notes Problem [id number] Diverticulosis o f large intestine without perforation or abscess without bleeding (K57.30) Active confirmed Plan Of Treatment No Information Insurance Providers Payer Name Payer Address Payer Phone Subscriber Number Group Number Insured Name Patient Relationship to Insured Coverage Start Date Coverage End Date [employer] H[employer] [address] [address] [place] [address] [id number] Saeid Silver Self - patient is the insured
--- OUTSIDE RECORDS SUMMARY | 2024-09-16 15:42 | XMS_ITS | Clinical Summary ---
Author Organization [facility] Address [address] [place] [address] Care Team Providers Care Roller Skater Name Role Phone Unavailable Primary Care Provider [...] series) 09/01/2026 Insurance MEDICARE [employer] G[employer]US [facility]
--- OUTSIDE RECORDS SUMMARY | 2024-09-16 15:42 | XMS_ITS | Continuity of Care Document ---
Author Organization [facility] Address [address] [place] [address] Phone Care Team Providers Care Cellophane Worker Name Role Phone Kobe Saleh Unavailable Unavailable [...] Diagnoses Date Provider Providers Copied on Encounter [facility] [address] [place] [address], [id number], tel:[phone] [place] No Information Nov-0 6-202 4 Muehl Kobe. [address] [place] [address], [facility] [address], [place], [facility], . tel:[phone], [id number], tel:[phone] [place] No Information 5-202 4 Muehl Kobe. [address] [place] [address], [facility] [address], [place], [facility], . tel:[phone] Referring Provider: Jayleen Payton [place], [place], [facility]. tel:[phone], [id number], tel:[phone] [place] No Information 0-202 4 Muehl Kobe. [address] [place] [address], [facility] [address], [place], [facility], . tel:[phone] Referring Provider: [place], [address]. tel:[phone], [id number], tel:[phone] [place] No Information Nov-0 8-202 4 Muehl Kobe. [address] [place] [address], [facility] [address], [place], [facility], [place]. tel:[phone] Referring Provider: Basia Torres, [address], [place], [address]. tel:[phone] [address], [place], [place], [id number], tel:[phone] [place] No Information Oct-0 4-202 4 Muehl Kobe. [address] [place] [address], [address], [place], [facility], . tel: [phone] Referring Provider: Basia Torres, [address], [place], [address]. tel:[phone] [address] [place] [address], [id number], tel:[phone] [place] No Information Oct-0 1- 4 Muehl Kobe. [address] [place] [address], [address], [place], [facility], . tel: [phone] Referring Provider: Basia Torres, Jayleen [address] [facility], [place], [address]. tel:[phone] [address] [place] [address], [id number], tel:[phone] [place] No Information Sep-2 7- 4 Muehl Kobe. [address] [place] [address], [address], [place], [facility], . tel: [phone] Referring Provider: Jay[place], [address]. tel:[phone] [address], [place], [id number], tel:[phone] [place] No Information Sep-2 5- 4 Muehl Kobe. [address] [place] [address], [address], [place], [facility], . tel: [phone] Referring Provider: Jayleen [address], [place], [address]. tel:[phone] [address], [place], [place], [id number], tel:[phone] [place] No Information Sep-1 4 Dagoberto Jamin. . Referring Provider: Jayleen Payton [facility], [place], [address]. tel:[phone] [place] [address] [place] [address], [place], [place], [id number], tel:[phone] [place] No Information Sep-1 7- 4 Muehl Kobe. [address] [place] [address], [address], [place], [facility], . tel: [phone] Referring Provider: Jayleen Payton [facility], [place], [address]. tel:[phone] [place] [address] [place] [address], [place], [place], [id number], tel:[phone] [place] No Information Sep-1 2- 4 Muehl Kobe. [address] [place] [address], [address], [place], [facility], . tel: [phone] Referring Provider: Jayleen Payton, [place], [address]. tel:[phone] [place] [address] [place] [address], [place], [place], [id number], tel:[phone] [place] No Information Sep-1 0-202 4 Muehl Kobe. [address] [place] [address], [address], [place], [facility], . tel: [phone] Referring Provider: Jayleen Payton [facility], [place], [address]. tel:[phone] [facility] [address] [place] [address], [place], [place], [id number], tel:[phone] [place] No Information Sep-0 5-202 4 Muehl Kobe. [address] [place] [address], [address], [place], [facility], . tel: [phone] Referring Provider: Basia Brian, [address] [place], [address]. tel:[phone] Family History Family Member Type Diagnosis Age At Onset No Information Payers Payer name Insurance type Covered green party ID Authoriza lyudmilajorge(s) Lien-LOP LI [id number] Social [...]
--- OUTSIDE RECORDS SUMMARY | 2024-09-16 16:57 | XMS_ITS | Continuity of Care Document ---
Author Organization [facility] Address [address] [place] [address] Phone Care Team Providers Care Insurance Salesperson Name Role Phone Kobe Saleh Unavailable Unavailable [...] Diagnoses Date Provider Providers Copied on Encounter [facility] [address] [place] [address], [id number], tel:[phone] [place] No Information Nov-0 6-202 4 Muehl Kobe. [address] [place] [address], [facility] [address], [place], [facility], . tel:[phone], [id number], tel:[phone] [place] No Information 5-202 4 Muehl Kobe. [address] [place] [address], [facility] [address], [place], [facility], . tel:[phone] Referring Provider: Jayleen Payton [place], [place], [facility]. tel:[phone], [id number], tel:[phone] [place] No Information 0-202 4 Muehl Kobe. [address] [place] [address], [facility] [address], [place], [facility], . tel:[phone] Referring Provider: [place], [address]. tel:[phone], [id number], tel:[phone] [place] No Information Nov-0 8-202 4 Muehl Kobe. [address] [place] [address], [facility] [address], [place], [facility], [place]. tel:[phone] Referring Provider: Basia Torres, [address], [place], [address]. tel:[phone] [address], [place], [place], [id number], tel:[phone] [place] No Information Oct-0 4-202 4 Muehl Kobe. [address] [place] [address], [address], [place], [place], [facility], . tel: [phone] Referring Provider: Basia Torres, [address], [place], [address]. tel:[phone] [address] [place] [address], [id number], tel:[phone] [place] No Information Oct-0 1- 4 Muehl Kobe. [address] [place] [address], [address], [place], [facility], . tel: [phone] Referring Provider: Basia Torres, [address] [facility], [place], [address]. tel:[phone] [address] [place] [address], [id number], tel:[phone] [place] No Information Sep-2 7- 4 Muehl Kobe. [address] [place] [address], [address], [place], [facility], . tel: [phone] Referring Provider: Jay[place], [address]. tel:[phone] [address], [place], [id number], tel:[phone] [place] No Information Sep-2 5- 4 Muehl Kobe. [address] [place] [address], [address], [place], [facility], . tel: [phone] Referring Provider: Jayleen Payton [address], [place], [address]. tel:[phone] [address], [place], [place], [id number], tel:[phone] [place] No Information Sep-1 4 Dagoberto Jamin. . Referring Provider: Jayleen Payton [facility], [place], [address]. tel:[phone] [place] [address] [place] [address], [place], [place], [id number], tel:[phone] [place] No Information Sep-1 7- 4 Muehl Kobe. [address] [place] [address], [address], [place], [facility], . tel: [phone] Referring Provider: Jayleen Payton [facility], [place], [address]. tel:[phone] [place] [address] [place] [address], [place], [id number], tel:[phone] [place] No Information Sep-1 2- 4 Muehl Kobe. [address] [place] [address], [address], [place], [facility], . tel: [phone] Referring Provider: Jayleen Payton, [place], [address]. tel:[phone] [place] [address] [place] [address], [place], [id number], tel:[phone] [place] No Information Sep-1 0-202 4 Muehl Kobe. [address] [place] [address], [address], [place], [facility], . tel: [phone] Referring Provider: Jayleen Payton [facility], [place], [address]. tel:[phone] [facility] [address] [place] [address], [place], [place], [id number], tel:[phone] [place] No Information Sep-0 5-202 4 Muehl Kobe. [address] [place] [address], [address], [place], [facility], . tel: [phone] Referring Provider: Basia Brian, [address] [place], [address]. tel:[phone] Family History Family Member Type Diagnosis Age At Onset No Information Payers Payer name Insurance type Covered alliance party ID Authoriza lyudmilajorge(s) Lien-LOP LI [id number] [...]
--- OUTSIDE RECORDS SUMMARY | 2024-09-16 16:57 | XMS_ITS | Clinical Summary ---
Author Organization [facility] Address [address] [place] [address] Care Team Providers Care Sand Sifter Name Role Phone Unavailable Primary Care Provider [...] series) 09/01/2026 Insurance MEDICARE [employer] [facility]
--- NOTE | 2024-09-16 17:40 | ED.GENADULT ---
HPI - General Adult General Chief complaint: Unspecified Stated complaint: lump on my chest Time Seen by Provider: 09/16/24 16:30 History of Present Illness HPI narrative: 74-year-old male presents emergency department for evaluation for sternal tenderness. Related Data Home Medications ?Medication ?Instructions ?Recorded ?Confirmed ?Last Taken ?Type lidocaine HCl 4 % topical cream 1 applic topical QID PRN 09/06/24 09/06/24 Unknown History (Aspercreme (lidocaine HCl)) ciprofloxacin HCl 0.2 % ear drops 09/12/24 Unknown History in a dropperette Allergies Allergy/AdvReac Type Severity Reaction Status Date / Time No Known Allergies Allergy Verified 09/16/24 15:44 PMFSH Past Medical History Medical History GERD (gastroesophageal reflux disease) Surgical History Surgical History Hx of cholecystectomy (~2013) Family History Family History Father Malignant neoplasm of prostate Mother Lewy body dementia Sibling Malignant neoplasm of prostate Social History Social History Social History: Caffeine 1 cup of coffee and/or soda a few days a week Smoking packs per day: 1 Smoking cigarettes per day: 20.0 Smoking status: Former smoker Tobacco type: cigarettes Smoking end date: 02/15/08 Alcohol intake: current Drinks per week: 1 Alcohol use details: 2-3 Beer per month Substance use: current Substance use type: marijuana Other substance usage details: gummies Do You Feel Safe in your Home?: Yes Lack of Transportation: No Lack of Food: Never True Current Housing: Decline to Answer Concerned About Future Housing: Decline to Answer Difficulty Paying Gas/Electric Bills: Decline to Answer Difficulty Paying for Meds: Decline to Answer Currently Unemployed: Decline to Answer Education: Decline to Answer Difficulty w/ Childcare or Family Care: Decline to Answer Living arrangements: alone Occupation/Education: retired Gender identity (if verbalized by the patient): Male Spiritual care concerns: No Agree to blood products: Yes Course Vital Signs Vital signs: Vital Signs Temperature 97.5 F L 09/16/24 15:42 Pulse Rate 85 09/16/24 15:42 Respiratory Rate 18 09/16/24 15:42 Blood Pressure 141/88 H 09/16/24 15:42 Pulse Oximetry 96 09/16/24 15:42 Oxygen Delivery Room Air 09/16/24 15:42 Temperature 97.5 F L 09/16/24 15:42 Pulse Rate 81 09/16/24 17:50 Respiratory Rate 16 09/16/24 17:50 Blood Pressure 132/81 09/16/24 17:50 Pulse Oximetry 97 09/16/24 17:50 Oxygen Delivery Room Air 09/16/24 15:42 Medical Decision Making MDM Narrative Medical decision making narrative: 74-year-old male presents to the emergency department for evaluation of chest wall tenderness. States he does have remote history of chest wall injury but states that after he had shingles he noticed a chest wall deformity. Patient does have a symmetric area of tenderness on his sternum with no overlying erythema. Symptoms may just be secondary to post herpetic neuralgia versus sternal tenderness post trauma. Acute abnormality was noted on chest x-ray related to the started. Patient denies any other chest pain or shortness of breath. Patient was encouraged close follow-up with his primary care physician. Differential Diagnosis Differential Diagnosis: Sternal injury, abscess, post herpetic neuralgia Vital Signs Vital Signs: Vital Signs Temperature 97.5 F L 09/16/24 15:42 Pulse Rate 85 09/16/24 15:42 Respiratory Rate 18 09/16/24 15:42 Blood Pressure 141/88 H 09/16/24 15:42 Pulse Oximetry 96 09/16/24 15:42 Oxygen Delivery Room Air 09/16/24 15:42 Temperature 97.5 F L 09/16/24 15:42 Pulse Rate 81 09/16/24 17:50 Respiratory Rate 16 09/16/24 17:50 Blood Pressure 132/81 09/16/24 17:50 Pulse Oximetry 97 09/16/24 17:50 Oxygen Delivery Room Air 09/16/24 15:42 Imaging Data Radiologist's impression: Impressions Chest X-Ray 09/16/24 17:33 IMPRESSION: Patchy groundglass opacities in the right lung, may represent asymmetric edema or infection. Likely underlying chronic interstitial changes Discharge Plan Discharge Clinical Impression: Chest wall tenderness Patient Disposition: Home Condition: Stable Instructions: Antibiotic Form Additional Instructions: Have close follow-up with primary care physician. If you have any worsening symptoms then please call or return to the emergency department. Patient Language: Tamazight Prescriptions: No Action ciprofloxacin HCl 0.2 % dropperette prednisone 10 mg tablet See Taper PO DIRECTED Qty: 23 0RF Taper: Prednisone Taper from 60 mg;12 days 40 mg DAILY for 2 Days and 0 Hour 30 mg DAILY for 2 Days and 0 Hour 20 mg DAILY for 3 Days and 0 Hour 10 mg DAILY for 3 Days and 0 Hour lidocaine HCl [Aspercreme (lidocaine HCl)] 4 % cream 1 applic topical QID PRN amlodipine 5 mg tablet 5 mg PO DAILY Qty: 90 2RF Follow-up/Referrals: Emir Herrera MD [Primary Care Provider] -
[2024-09-16 17:50] VITALS: BP 132/81; PULSE 81; RESP 16; O2SAT 97
== END 2024-09-16 17:52 | disposition home or self-care (01) ==
PROVIDERS: Emergency Provider Emergency Medicine; PCP Emergency Medicine
DX: R07.89 Other chest pain (principal); K21.9 Gastro-esophageal reflux disease without esophagitis; Z87.891 Personal history of nicotine dependence; Z90.49 Acquired absence of other specified parts of digestive tract
CPT/HCPCS: 71046; 99283

== ENCOUNTER 2024-10-18 15:54 | Emergency (ER) | payer OTHER, SELFPAY ==
--- NOTE | 2024-10-18 16:03 | ED_ITS ---
HPI - Ear Problem General Chief complaint: Ear Stated complaint: Ear Pain Source: patient Mode of arrival: ambulatory Limitations: no limitations History of Present Illness HPI Narrative: 74 y/o male presented for c/o acute on chronic left ear pain. States he had shingles on the left cheek in August and has a diagnosis of post herpetic neuralgia. Pt has had this pain, but says it is worse the past few days. He has been seen several times in ER or UC for the same. Has seen ENT and neurology and is planning to schedule with dermatology. Takes tramadol and gabapentin. Has applied lidocaine cream. Denies decreased hearing, tinnitus, dizziness, ear drainage or fever. MD Complaint: ear pain Related Data Allergies Allergy/AdvReac Type Severity Reaction Status Date / Time No Known Allergies Allergy Verified 10/18/24 15:57 Review of Systems Review of Systems: CONSTITUTIONAL: Denies malaise, chills, or fever. EYES: Denies visual changes, redness, or discharge. ENT: Denies rhinorrhea, congestion, sinus pain, and sore throat. Reports ear pain CARDIOVASCULAR: Denies chest pain, palpitations, or edema. RESPIRATORY: Denies cough or dyspnea. GASTROINTESTINAL: Denies abdominal pain, nausea, vomiting, diarrhea SKIN: Denies rash or itching. MUSCULOSKELETAL: Denies myalgia. NEUROLOGIC: Denies headache. All systems reviewed & are unremarkable except as noted in HPI and below PMFSH Past Medical History Medical History Post herpetic neuralgia GERD (gastroesophageal reflux disease) Surgical History Surgical History Hx of cholecystectomy (~2013) Family History Family History Father Malignant neoplasm of prostate Mother Lewy body dementia Sibling Malignant neoplasm of prostate Social History Social History Social History: Caffeine 1 cup of coffee and/or soda a few days a week Smoking packs per day: 1 Smoking cigarettes per day: 20.0 Smoking status: Former smoker Tobacco type: cigarettes Smoking end date: 02/15/08 Alcohol intake: current Drinks per week: 1 Alcohol use details: 2-3 Beer per month Substance use: current Substance use type: marijuana Other substance usage details: gummies Do You Feel Safe in your Home?: Yes Lack of Transportation: No Lack of Food: Never True Current Housing: Decline to Answer Concerned About Future Housing: Decline to Answer Difficulty Paying Gas/Electric Bills: Decline to Answer Difficulty Paying for Meds: Decline to Answer Currently Unemployed: Decline to Answer Education: Decline to Answer Difficulty w/ Childcare or Family Care: Decline to Answer Living arrangements: alone Occupation/Education: retired Gender identity (if verbalized by the patient): Male Spiritual care concerns: No Agree to blood products: Yes Comments At time of signature, agree with nursing past medical, surgical, social and family history. There is no relevant family history pertinent to the presenting complaint Exam Narrative: GENERAL: Well-appearing EYES: PERRLA, conjunctivae clear ENT: Nares clear. Mucous membranes moist. Tender with light palpation to preauricular area. Bilateral TMs normal light reflex; canals not erythematous, no drainage, no tragal tenderness. Oropharynx not erythematous without lesions. no drooling, no hoarseness, no trismus, uvula midline. NECK: Supple. No lymphadenopathy CHEST: Clear to auscultation, breath sounds equal. No wheezing, rhonchi, rales, or stridor. No respiratory distress, speaks in full sentences. HEART: Regular rate and rhythm. No murmur heard. SKIN: Warm, dry. small patch of pinpoint pustules on erythematous base to left cheek, tender NEURO: Alert and oriented x3. PSYCH: Normal mood and affect Course Course Emergency Course: Patient is aware of diagnosis, understands and agrees to treatment plan. Anticipatory guidance given. Patient agrees to follow-up as directed and is aware of reasons to seek care at the emergency department. Portions of this record may have been created with voice recognition software Level of Care: Express Care Visit Vital Signs Vital signs: Reviewed Medical Decision Making MDM Narrative Medical decision making narrative: discussed physical exam findings most consistent with post herpetic neuralgia as previously diagnosed. No AOM. Advised supportive measures and signs/symptoms to go to the ER. Patient is appropriate for outpatient treatment and follow-up. Differential Diagnosis Differential Diagnosis: Coronavirus, strep pharyngitis, allergic rhinitis, upper respiratory tract infection, sinusitis, rhinosinusitis, nasopharyngitis, viral pharyngitis, otitis media, otitis externa, eustachian tube dysfunction, foreign body, cerumen impaction. Discharge Plan Discharge Clinical Impression: Neuralgia Patient Disposition: Home Condition: Stable Instructions: Cresencio (ED) Additional Instructions: Continue to take the previously prescribed medication for pain, take only as directed Follow up with your primary care provider as needed in 1 week Go to the ER for worsening symptoms or concerns Patient Language: Bulgarian Prescriptions: No Action gabapentin 600 mg tablet 600 mg PO TID Qty: 270 2RF amlodipine 5 mg tablet 5 mg PO DAILY Qty: 90 2RF valacyclovir [Valtrex] 1 gram tablet 1,000 mg PO DAILY Qty: 10 0RF amitriptyline 25 mg tablet 25 mg PO QHS Qty: 90 0RF tramadol 50 mg tablet 50 mg PO Q6H PRN (Reason: pain) Qty: 60 0RF Follow-up/Referrals: Emir Herrera MD [Primary Care Provider, Internal Medicine] Time of Disposition: 16:15
[2024-10-18 16:06] VITALS: BP 140/90; PULSE 92; RESP 20; TEMP 37.1; O2SAT 96
== END 2024-10-18 16:21 | disposition home or self-care (01) ==
PROVIDERS: Emergency Provider Nurse Practitioner Family; PCP Emergency Medicine
DX: M79.2 Neuralgia and neuritis, unspecified (principal); F12.90 Cannabis use, unspecified, uncomplicated; K21.9 Gastro-esophageal reflux disease without esophagitis; Z87.891 Personal history of nicotine dependence
CPT/HCPCS: 99211; G0463